=== PATIENT | male | born 1955 | race Caucasian/White ===

== ENCOUNTER 2021-08-09 15:24 | Emergency (ER) | payer OTHER, SELFPAY ==
[2021-08-09 15:50] VITALS: BP 130/70; PULSE 60; RESP 16; TEMP 36.4; O2SAT 99
--- NOTE | 2021-08-09 16:56 | ED.GENADULT ---
HPI - General Adult General Chief complaint: Unspecified Stated complaint: covid testing Source: patient Mode of arrival: ambulatory Limitations: no limitations History of Present Illness HPI narrative: Patient is a 66-year-old male who presents to the [facility] via POV for rapid Covid test since he is having surgery tomorrow. He states he was notified by his surgeon's office that he would need a rapid Covid test prior to surgery. He reports he is having cervical fusion tomorrow morning. Related Data Allergies Allergy/AdvReac Type Severity Reaction Status Date / Time No Known Allergies Allergy Unverified 03/15/14 11:47 Review of Systems Constitutional: Comments: Denies anorexia, fever, myalgias, chills, fatigue, appetite changes, unexpected weight loss Eyes: Comments: Denies vision change ENT: Comments: Denies ear pain, hearing difficulty, voice changes, ear pain, ear drainage, sore throat, drooling, difficulty swallowing, Cardiovascular: Comments: Denies chest pain, edema, and heart palpitations Respiratory: Comments: Denies shortness of breath, cough, and cyanosis Gastrointestinal: Comments: Denies nausea, vomiting, diarrhea, and constipation Genitourinary: Comments: Denies dysuria, urinary frequency, urinary urgency, urinary hesitancy, urinary incontinence Musculoskeletal: Comments: Chronic cervical neck pain. Neurologic: Comments: Denies confusion, vertigo, dizziness, syncope, frequent falls, headaches, lack of coordination, focal weakness, loss of vision, memory loss, numbness, tingling, loss of sensation, tremor PMFSH Comments I have reviewed and agree with the patient's past medical, surgical, social, and family hx as documented by the RN. There is no relevant family history pertinent to the presenting complaint. Exam Narrative: GENERAL: Well-appearing, well-nourished, and in no acute distress. HEAD: Normocephalic, atraumatic. NECK: Supple. No Lymphadenopathy or nuchal rigidity appreciated. CHEST: Bilateral lung francois are clear to auscultation. No respiratory distress. No evidence of cough or pleuritic cp upon examination. HEART: Regular rate and rhythm. No murmur, gallop, or rub heard. EXTREMITIES: No evidence of injury, decreased ROM, swelling, cyanosis, hematoma, laceration, abrasion, deformity, rash, or puncture. No evidence of pain with active/passive ROM. No evidence of dislocation, ligament laxity, effusion, or pain at rest. Pulses palpable at 2+, strength 5/5, and cap refill < 3 seconds in affected extremity. DTRs normal. Gait normal. SKIN: Warm, dry, no rash. NEURO: No focal deficits. Alert and oriented x3. SPECIAL OBSERVATIONS: Smiling. Laughing. No evidence of discomfort. C/O of of proportion to exam. Eating XXX. Running around. Tolerates food/fluids. Course Vital Signs Vital signs: Vital Signs Temperature 97.5 F L 08/09/21 15:50 Pulse Rate 60 08/09/21 15:50 Respiratory Rate 16 08/09/21 15:50 Blood Pressure 130/70 08/09/21 15:50 Pulse Oximetry 99 08/09/21 15:50 Temperature 97.5 F L 08/09/21 15:50 Pulse Rate 60 08/09/21 15:50 Respiratory Rate 16 08/09/21 15:50 Blood Pressure 130/70 08/09/21 15:50 Pulse Oximetry 99 08/09/21 15:50 Due to an elevated blood pressure, I had a detailed discussion with the patient and/or guardian regarding the need for follow-up with their primary care provider within the next 3-4 days. Patient verbalized understanding and agreed. Medical Decision Making Differential Diagnosis Differential Diagnosis: Covid screening Medical Records Medical records reviewed: Yes I reviewed the external patient's medical records. Vital Signs Vital Signs: Vital Signs Temperature 97.5 F L 08/09/21 15:50 Pulse Rate 60 08/09/21 15:50 Respiratory Rate 16 08/09/21 15:50 Blood Pressure 130/70 08/09/21 15:50 Pulse Oximetry 99 08/09/21 15:50 Temperature 97.5 F L 08/09/21 15:50 Pulse Rate 60 08/09/21 15:50 Respiratory
== END 2021-08-09 16:58 | disposition home or self-care (01) ==
PROVIDERS: Emergency Provider Nurse Practitioner Family
DX: Z20.822 Contact with and (suspected) exposure to COVID-19 (principal)
CPT/HCPCS: 87426; 99213; C9803; G0463